=== PATIENT | female | born 1970 | race Hispanic/Latino ===

== ENCOUNTER → 2019-11-19 | Outpatient (CLI) | payer MEDICARE, OTHER ==
[~2019-11-19] MED LIST: DIATRIZOATE MEGL/DIATRIZOA SOD 30 ML BTL PO ONE; SODIUM CHLORIDE 0.9% 500ML 0 ML ONE
[2019-11-19 08:26] LABS: CREATININE, SERUM 1.11 mg/dL (0.57-1.11)
--- NOTE | 2019-11-19 12:12 | Diagnostic Imaging Report ---
CT of the abdomen and pelvis History: Diverticulitis Comparison: None available. Technique: Multidetector CT scanning of the abdomen and pelvis was performed from the level of the lung bases to the inferior pubic ramus, without intravenous administration of non-ionic contrast and with oral contrast. DOSE REDUCTION: The examination was performed according to departmental dose-optimization program which includes automated exposure control, adjustment of the mA and/or kV according to patient size and/or use of iterative reconstruction technique. Discussion: The lung bases are clear. Lack of IV contrast limits evaluation of solid and hollow visceral organs. The liver is within normal limits of size. No suspicious hepatic lesions are identified. The gallbladder is present and nondistended. No radiopaque gallstones are identified. There is no intrahepatic or extrahepatic biliary dilatation. The spleen is within normal limits. The bilateral adrenal glands are unremarkable. The pancreas is normal in attenuation. There is no pancreatic ductal dilatation or peripancreatic inflammatory stranding. The kidneys are normal in size. There is no hydroureteronephrosis bilaterally. No renal calculi are identified. The stomach, small, and large bowel are normal in caliber. There is no evidence of obstruction. No bowel wall thickening is appreciated. The appendix is normal. There are scattered colonic diverticula without evidence of acute diverticulitis. There is no free intraperitoneal air or ascites. The abdominal aorta is of normal course and caliber. The uterus is surgically absent. The urinary bladder is within normal limits. No acute osseous abnormalities are identified. IMPRESSION: 1. Colonic diverticulosis without evidence of acute diverticulitis. 2. Status post hysterectomy. Signed by: El Hector MD on 11/19/2019 12:09 PM
== END ==
LOC: CT 07:48
PROVIDERS: ATTEND Internal Medicine
DX: K57.92 Diverticulitis of intestine, part unspecified, without perforation or abscess without bleeding (principal)
CPT/HCPCS: 36415; 74176; 82565; 84520; J7040

== ENCOUNTER → 2021-12-16 | Outpatient (CLI) | payer OTHER, MEDICARE | LOC: MAMMO 14:44 | PROVIDERS: ATTEND Internal Medicine | DX: Z12.31 Encounter for screening mammogram for malignant neoplasm of breast (principal); J41.0 Simple chronic bronchitis | CPT/HCPCS: 77067 ==

== ENCOUNTER 2022-01-30 15:05 | Observation (INO) | payer MEDICARE, OTHER ==
[~2022-01-30] VITALS: Ht 154.9 cm; Wt 88.5 kg
[2022-01-30 15:28] LABS: BASOPHILS # (AUTO) 0.1 (0.0-0.1); BASOPHILS % 1.3 % (0.0-1.0); EOSINOPHILS # (AUTO) 0.4 (0.0-0.4); EOSINOPHILS % 4.7 % (0.0-6.0); HEMATOCRIT 37.4 % (34.2-44.1); HEMOGLOBIN 12.2 g/dL (12.0-16.0); LYMPHOCYTES # (AUTO) 2.8 (1.0-3.2); LYMPHOCYTES % 37.3 % (18.0-39.1); MEAN CORPUSCULAR HEMOGLOBIN 29.4 pg (28-32); MEAN CORPUSCULAR HGB CONC 32.6 g/dL (31-35); MEAN CORPUSCULAR VOLUME 90.1 fL (81-99); MONOCYTES # (AUTO) 0.6 (0.2-0.8); MONOCYTES % 7.9 % (4.4-11.3); NEUTROPHILS # (AUTO) 3.6 (2.1-6.9); NEUTROPHILS % 48.7 % (38.7-80.0); PLATELET COUNT 243 x10e3/uL (140-360); RED BLOOD COUNT 4.15 x10e6/uL (3.6-5.1); RED CELL DISTRIBUTION WIDTH 13.9 % (11.7-14.4)
[2022-01-30 15:41] LABS: INR 1.04; PROTHROMBIN TIME 14.5 seconds (11.9-14.5)
[2022-01-30 15:42] LABS: PARTIAL THROMBOPLASTIN TIME 28.1 seconds (23.8-35.5)
[2022-01-30 15:52] LABS: ALANINE AMINOTRANSFERASE 19 IU/L (0-55); ALBUMIN 3.5 g/dL (3.5-5.0); ALBUMIN/GLOBULIN RATIO 0.8 (0.8-2.0); ALKALINE PHOSPHATASE 60 IU/L (40-150); ANION GAP 13.2 mmol/L (8-16); BLOOD UREA NITROGEN 19 mg/dL (7-26); BUN/CREATININE RATIO 17 (6-25); CALCIUM 9.1 mg/dL (8.4-10.2); CARBON DIOXIDE 25 mmol/L (22-29); CHLORIDE 106 mmol/L (98-107); CREATINE KINASE 55 IU/L (29-168); CREATININE, SERUM 1.15 mg/dL (0.57-1.11); EST GLOMERULAR FILTRATION RATE 50 ML/MIN (60-); GLUCOSE 93 mg/dL (74-118); POTASSIUM 3.2 mmol/L (3.5-5.1); SODIUM 141 mmol/L (136-145)
[2022-01-30 15:58] LABS: MAGNESIUM 1.8 MG/DL (1.3-2.1)
[2022-01-30] MEDS ORDERED: SODIUM CHLORIDE 0.9% 1000ML 1,000 ML IV STA (15:58)
[2022-01-30 16:27] LABS: CLARITY,URINE HAZY (CLEAR); COLOR,URINE YELLOW (YELLOW); KETONES,URINE NEGATIVE (NEGATIVE); LEUKOCYTE ESTERASE ,URINE NEGATIVE (NEGATIVE); NITRITE,URINE NEGATIVE (NEGATIVE); PROTEIN,URINE DIPSTICK 1+ (NEGATIVE); URINE UROBILINOGEN 0.2 mg/dL (0.2 - 1)
[2022-01-30 16:32] LABS: AMPHETAMINES SCREEN,URINE NEGATIVE (NEGATIVE); BENZODIAZEPINES SCREEN,URINE NEGATIVE (NEGATIVE); PHENCYCLIDINE SCREEN,URINE NEGATIVE (NEGATIVE)
[2022-01-30 16:40] LABS: BACTERIA,URINE FEW /HPF; EPITHELIAL CELLS,URINE MODERATE /LPF; RBC,URINE 0-5 /HPF (0-5); WBC,URINE (MAN) 0-5 /HPF (0-5)
[2022-01-30] MEDS ORDERED: ALBUTEROL/IPRATROPIUM 3 ML NEB ONE (16:40)
[2022-01-30] MEDS ORDERED: POTASSIUM CHLORIDE 20 MEQ TAB CR PO STA (17:17)
[2022-01-30] MEDS ORDERED: ONDANSETRON HCL INJ 2MG/ML 2ML 2 MG/ML VIAL IV PRN (18:15)
[2022-01-30] MEDS ORDERED: ACETAMINOPHEN 325 MG TAB PO PRN (18:30)
[2022-01-30] MEDS: FAMOTIDINE 20 MG/2 ML VIAL IV SCH (18:43)
[2022-01-30] MEDS: KCL 20MEQ/.9 SOD CHL 1,000 ML IV SCH (18:43)
[2022-01-30] MEDS: KETOROLAC TROMETHAMINE 30 MG/ML VIAL IV PRN (18:44)
[2022-01-30 20:00] VITALS: BP 90/59
[2022-01-30 20:12] VITALS: BP 90/59
[2022-01-30 20:33] LABS: CHOL/HDL RATIO 3.1 (3.0-3.6)
[2022-01-30] MEDS ORDERED: LOSARTAN POTASS25 MG PO (20:50)
[2022-01-30] MEDS ORDERED: CYMBALTA30 MG PO (20:50)
[2022-01-30] MEDS ORDERED: PLAQUENIL200 MG PO (20:50)
[2022-01-30] MEDS ORDERED: ATORVASTATIN CA10 MG PO (20:50)
[2022-01-30] MEDS ORDERED: VENTOLIN HFA18 GM INH (20:50)
[2022-01-30] MEDS ORDERED: INGREZZA80 MG PO (20:50)
[2022-01-30] MEDS ORDERED: PREDNISONE10 MG PO (20:50)
[2022-01-30] MEDS ORDERED: SEROQUEL100 MG PO (20:50)
[2022-01-30] MEDS ORDERED: PREDNISONE5 MG PO (20:50)
[2022-01-30] MEDS ORDERED: NEURONTIN100 MG PO (20:50)
[2022-01-30] MEDS ORDERED: TRAZODONE HCL100 MG PO (20:50)
[2022-01-30 21:00] VITALS: BP 90/59
[2022-01-30] MEDS ORDERED: TRAZODONE HCL 50 MG TAB PO SCH (21:00)
[2022-01-30] MEDS ORDERED: ATORVASTATIN 10 MG TAB PO SCH (21:00)
[2022-01-30] MEDS ORDERED: HYDROXYCHLOROQUINE SULFATE 200 MG TAB PO SCH (21:00)
[2022-01-30] MEDS ORDERED: QUETIAPINE FUMARATE 100 MG TAB PO SCH (21:00)
[2022-01-30] MEDS ORDERED: ALBUTEROL SULFATE HFA 8GM INHALATION AEROSOL INH PRN (21:00)
[2022-01-30] MEDS: GABAPENTIN 100 MG CAP PO SCH (21:45)
[2022-01-31] VITALS: BP 88/57
[2022-01-31 01:32] LABS: CREATINE KINASE 50 IU/L (29-168)
[2022-01-31] MEDS: KETOROLAC TROMETHAMINE 30 MG/ML VIAL IV PRN (03:12)
[2022-01-31] MEDS: KCL 20MEQ/.9 SOD CHL 1,000 ML IV SCH (03:12)
[2022-01-31 04:00] VITALS: BP 91/59
[2022-01-31 05:28] LABS: BASOPHILS # (AUTO) 0.1 (0.0-0.1); BASOPHILS % 1.2 % (0.0-1.0); EOSINOPHILS # (AUTO) 0.3 (0.0-0.4); LYMPHOCYTES % 19.2 % (18.0-39.1); MEAN CORPUSCULAR HEMOGLOBIN 29.7 pg (28-32); MEAN CORPUSCULAR HGB CONC 32.3 g/dL (31-35); MONOCYTES # (AUTO) 0.6 (0.2-0.8); MONOCYTES % 11.7 % (4.4-11.3); NEUTROPHILS # (AUTO) 3.2 (2.1-6.9); NEUTROPHILS % 62.7 % (38.7-80.0); PLATELET COUNT 177 x10e3/uL (140-360); RED BLOOD COUNT 3.37 x10e6/uL (3.6-5.1)
[2022-01-31 05:47] LABS: ALBUMIN 2.7 g/dL (3.5-5.0); ALBUMIN/GLOBULIN RATIO 0.8 (0.8-2.0); ANION GAP 9.2 mmol/L (8-16); CALCIUM 7.8 mg/dL (8.4-10.2); CHOL/HDL RATIO 3.6 (3.0-3.6); CREATININE, SERUM 1.16 mg/dL (0.57-1.11); POTASSIUM 4.2 mmol/L (3.5-5.1)
[2022-01-31 06:10] LABS: CREATINE KINASE 52 IU/L (29-168)
[2022-01-31] MEDS: FAMOTIDINE 20 MG/2 ML VIAL IV SCH (06:12)
[2022-01-31 07:45] VITALS: BP 118/69
[2022-01-31 07:54] VITALS: BP 118/69
[2022-01-31] MEDS: GABAPENTIN 100 MG CAP PO SCH (08:37)
[2022-01-31] MEDS ORDERED: VALBENAZINE TOSYLATE PO SCH (09:00)
[2022-01-31] MEDS ORDERED: PREDNISONE 10 MG TAB PO SCH (09:00)
[2022-01-31] MEDS ORDERED: DULOXETINE HCL 30 MG DELAYED RELEASE PO SCH (09:00)
[2022-01-31] MEDS ORDERED: ASPIRIN 81 MG CHEW TAB PO SCH (09:00)
[2022-02-05] MEDS ORDERED: PREDNISONE 5 MG TAB PO SCH (09:00)
== END 2022-01-31 09:21 | disposition home or self-care (01) ==
LOC: ER 15:59 → ERHOLD 18:01 → MED/SURG 20:12
PROVIDERS: ADMIT Internal Medicine; ATTEND Internal Medicine
DX: S93.402A Sprain of unspecified ligament of left ankle, initial encounter (principal); I12.9 Hypertensive chronic kidney disease with stage 1 through stage 4 chronic kidney disease, or unspecified chronic kidney disease; N18.2 Chronic kidney disease, stage 2 (mild); E86.0 Dehydration; M32.9 Systemic lupus erythematosus, unspecified; F20.9 Schizophrenia, unspecified; F32.A Depression, unspecified; E78.5 Hyperlipidemia, unspecified; W19.XXXA Unspecified fall, initial encounter; S91.119A Laceration without foreign body of unspecified toe without damage to nail, initial encounter; Z79.899 Other long term (current) drug therapy; Z20.822 Contact with and (suspected) exposure to COVID-19
CPT/HCPCS: 36415 ×2; 70450; 71045; 72125; 73630; 80053 ×2; 80061 ×2; 80307; 80320; 81001; 82550 ×2; 82553 ×2; 83735; 84484 ×2; 85025 ×2; 85610; 85730; 93005; 93306; 99284; G0168; G0378 ×2; J1885 ×2; J2405; J7030; J7512; U0002

== ENCOUNTER 2022-02-11 19:25 | Emergency (ER) | payer MEDICARE, OTHER ==
[~2022-02-11] VITALS: Ht 154.9 cm; Wt 88.5 kg
[~2022-02-11 19:25] MED LIST changes: +ATORVASTATIN CA10 MG PO; +CYMBALTA30 MG PO; -DIATRIZOATE MEGL/DIATRIZOA SOD 30 ML BTL PO ONE; +INGREZZA80 MG PO; +LOSARTAN POTASS25 MG PO; +NEURONTIN100 MG PO; +PLAQUENIL200 MG PO; +PREDNISONE10 MG PO; +PREDNISONE5 MG PO; +SEROQUEL100 MG PO; -SODIUM CHLORIDE 0.9% 500ML 0 ML ONE; +TRAZODONE HCL100 MG PO; +VENTOLIN HFA18 GM INH
[2022-02-11 20:26] LABS: CLARITY,URINE SL CLOUDY (CLEAR); COLOR,URINE YELLOW (YELLOW); KETONES,URINE NEGATIVE (NEGATIVE); LEUKOCYTE ESTERASE ,URINE NEGATIVE (NEGATIVE); NITRITE,URINE NEGATIVE (NEGATIVE); PROTEIN,URINE DIPSTICK NEGATIVE (NEGATIVE); URINE UROBILINOGEN 0.2 mg/dL (0.2 - 1)
[2022-02-11 20:34] LABS: AMORPHOUS SEDIMENT,URINE MODERATE (FEW); EPITHELIAL CELLS,URINE MANY /LPF
== END 2022-02-11 21:30 | disposition left against medical advice (07) ==
LOC: ER 19:30
DX: M79.672 Pain in left foot (principal); R35.0 Frequency of micturition
CPT/HCPCS: 81001